=== PATIENT | male | born 1960 | race African-American/Black ===

== ENCOUNTER 2019-03-05 12:28 | Emergency (ER) | payer BC ==
[~2019-03-05] VITALS: Ht 180.3 cm; Wt 86.2 kg
[2019-03-05 12:28] VITALS: BP_SYST 158
[2019-03-05 13:45] VITALS: BP_SYST 158
== END 2019-03-05 13:45 | disposition home or self-care (01) ==
LOC: SED 12:28
DX: B02.9 Zoster without complications (principal); R03.0 Elevated blood-pressure reading, without diagnosis of hypertension
CPT/HCPCS: 99283

== ENCOUNTER 2019-03-26 09:54 | Emergency (ER) | payer BC ==
[~2019-03-26] VITALS: Ht 177.8 cm; Wt 86.2 kg
[2019-03-26 09:55] VITALS: BP_SYST 183
--- NOTE | 2019-03-26 10:00 | NUR ---
BROUGHT BACK TO BED #1 AND TRIAGED.REPORT GIVEN TO NAM
--- NOTE | 2019-03-26 10:05 | NUR ---
Pt is here for c/o chin excoriation for 4-5 days with small bump to underneath chin. Pt denied pain to area, respirations even and unlabored, 98 % O2 sat RA, no respiratory distress noted. Pt states he is able to swallow water, no swelling to throat or tongue noted.
--- NOTE | 2019-03-26 10:12 | NUR ---
DR VENCES AT BEDSIDE FOR EVALUATION
[2019-03-26] MEDS ORDERED: PREDNISONE 20 MG TABLET PO ONE (10:30)
--- NOTE | 2019-03-26 11:10 | NUR ---
Patient given written and verbal discharge instructions and verbalizes understanding. ER MD discussed with patient the results and treatment provided. Patient in stable condition. ID arm band removed. IV catheter removed intact and dressing applied, no active bleeding.Rx of hydrocorstisone cream given..Opportunity for questions provided and answered. Medication side effect fact sheet provided.
[2019-03-26 12:28] VITALS: BP_SYST 148
== END 2019-03-26 11:10 | disposition home or self-care (01) ==
LOC: SED 09:54
DX: T78.40XA Allergy, unspecified, initial encounter (principal); R03.0 Elevated blood-pressure reading, without diagnosis of hypertension; X58.XXXA Exposure to other specified factors, initial encounter
CPT/HCPCS: 99283; J7512; 99282

== ENCOUNTER 2019-12-24 23:31 | Emergency (ER) | payer SELFPAY ==
[~2019-12-24] VITALS: Ht 177.8 cm; Wt 85.3 kg
[2019-12-25 00:32] VITALS: BP_SYST 159
--- NOTE | 2019-12-25 00:38 | NUR ---
Patient triaged and placed in waiting room. VSS and patient appears in no acute distress at this time. Accompanied by self, awaiting available bed, and MD notified of need for MSE.
--- NOTE | 2019-12-25 01:46 | NUR ---
Pt ambulatory to bed hallway for evaluation
--- NOTE | 2019-12-25 01:48 | NUR ---
Pt AAOx4 c/o intermittent facial swelling and dry mouth x 1 month. Pt has been using skin cream which helps with swelling. No other injuries/complaints per pt/noted. Will continue to monitor.
--- NOTE | 2019-12-25 01:55 | NUR ---
ER Dr. Vitale at bedside examining patient.
[2019-12-25] MEDS ORDERED: AMOXICILLIN 500 MG CAPSULE PO ONE (02:00)
--- NOTE | 2019-12-25 02:00 | NUR ---
Patient given written and verbal discharge instructions and verbalizes understanding. ER MD Vitale discussed with patient the results and treatment provided. Patient in stable condition. ID arm band removed. Rx of Amoxicillin given. Patient educated on pain management and to follow up with PMD. Pain Scale 0. Opportunity for questions provided and answered. Medication side effect fact sheet provided.
[2019-12-25 02:18] VITALS: BP_SYST 140
== END 2019-12-25 02:00 | disposition home or self-care (01) ==
LOC: SED 23:31
DX: L03.211 Cellulitis of face (principal); F12.90 Cannabis use, unspecified, uncomplicated
CPT/HCPCS: 99283